=== PATIENT | female | born 1970 | race African-American/Black ===

== ENCOUNTER 2017-09-02 08:42 | Day surgery (SDC) | payer OTHER ==
--- NOTE | 2017-09-02 08:51 | PDOC ---
History of Present Illness - General Chief Complaint: Nausea/Vomiting Stated Complaint: vomiting Time Seen by Provider: 09/02/17 08:49 History Source: Patient, Old Records Exam Limitations: No Limitations - History of Present Illness Initial Comments: 09/02/17 09:40 46-year-old female with h/o anemia, surgical history relevant for gastric banding in 2011 uncomplicated until last month when she required loosening of the band in the setting of vomiting now presents with intractable vomiting for 5 days. Patient is unable to tolerate liquids or solids, vomit undigested food without blood. She was seen by Dr. Olivier, her surgeon, and a upper GI series performed yesterday showed no passage of contrast past the band. She is here today for management of persistent vomiting and dehydration and likely urgent intervention of the band. Passing flatus, no fevers or chills, feels lightheaded with some paresthesias in her hands which she attributes to her dehydration. Past History - Past Medical History Allergies/Adverse Reactions: Allergies Allergy/AdvReac Type Severity Reaction Status Date / Time No Known Allergies Allergy Verified 09/02/17 08:43 Home Medications: Ambulatory Orders NK [No Known Home Medication] 09/02/17 Anemia: No Asthma: No Cancer: No Cardiac Disorders: No CVA: No COPD: No CHF: No Dementia: No Diabetes: No GI Disorders: No Disorders: No HTN: Yes Hypercholesterolemia: No Liver Disease: No Seizures: No Thyroid Disease: No - Surgical History Abdominal Surgery: No Appendectomy: No Cardiac Surgery: No Cholecystectomy: No Lung Surgery: No Neurologic Surgery: No Orthopedic Surgery: No - Suicide/Smoking/Psychosocial Hx Smoking History: Never smoked Have you smoked in the past 12 months: No Hx Alcohol Use: Yes Drug/Substance Use Hx: Yes Substance Use Type: Alcohol Hx Substance Use Treatment: No Review of Systems - Review of Systems Constitutional: No: Chills, Fever Respiratory: No: Cough, Shortness of Breath ABD/GI: Yes: Vomiting, Indigestion. No: Diarrhea : No: Dysuria, Frequency Neurological: No: Headache All Other Systems: Reviewed and Negative *Physical Exam - Physical Exam Comments: 09/02/17 09:43 Afebrile. Vital signs normal. GENERAL: The patient is awake, alert, and fully oriented, in no acute distress. HEAD: Normal with no signs of trauma. EYES: PERRL, EOMI, sclera anicteric, conjunctiva clear with no pallor. ENT: oropharynx clear without exudates. Slightly dry mucous membranes. NECK: Normal range of motion, supple without lymphadenopathy, JVD, or masses. LUNGS: Breath sounds equal, clear to auscultation bilaterally. No wheeze/ crackles. HEART: Regular rate and rhythm, normal S1 and S2 without murmur or rub. ABDOMEN: Healed incisional scar. Soft/nontender/nondistended. BS wnl. No guarding or rebound. No palpable masses. No hepatosplenomegaly. EXTREMITIES: Normal range of motion, no edema. 2+ distal pulses. No cords, erythema, or tenderness. NEUROLOGICAL: Cranial nerves II through XII grossly intact. Normal speech, normal gait. PSYCH: Normal mood, normal affect. SKIN: Warm, Dry, no rashes or lesions noted. Heart Score/ECG Review #1 ECG reviewed & interpreted by me at: 10:21 General ECG Interpretation: Sinus Rhythm, Normal Rate (69), Normal Intervals ( qtc 460), No acute ischemic changes ED Treatment Course - LABORATORY CBC & Chemistry Diagram: 09/02/17 09:37 09/02/17 09:37 Medical Decision Making - Medical Decision Making 09/02/17 09:44 46-year-old female with intractable vomiting and evidence of obstructing LAP- BAND on upper GI series performed yesterday. Slight dehydration with otherwise normal vital signs and benign abdominal exam. Labs, urinalysis IV fluid rehydration Disposition with Dr. Olivier 09/02/17 10:11 labs wnl, Hgb 11.5, no leukocytosis. Chem notable for K 3.1 which was repleted, LFTs wnl, lipase pending. Discussed with Dr. Olivier, will need OR for lap band removal. Accepts for admission to OR, nurse yard supervisor made aware. *DC/Admit/Observation/Transfer Diagnosis at time of Disposition: Encounter for adjustment of gastric lap band Intractable vomiting Qualifiers: Vomiting type: unspecified Nausea presence: without nausea Qualified Code(s): R11.11 - Vomiting without nausea - Discharge Dispostion Condition at time of disposition: Stable Decision to Admit order: Yes - Referrals - Patient Instructions - Post Discharge Activity
[2017-09-02] MEDS ORDERED: SODIUM CHLORIDE 1,000 ML IV ONE (08:52)
[2017-09-02 09:41] VITALS: BMI 35.5
[2017-09-02 09:49] LABS: EOS % 2.2 % (0-4.5); HEMATOCRIT 34.8 % (32.4-45.2); HEMOGLOBIN 11.5 GM/dl (10.7-15.3); LYMPH % 28.5 % (8-40); MCH 27.6 pg (25.7-33.7); MCHC 33.2 g/dl (32.0-36.0); MEAN CELL VOLUME 83.2 fl (80-96); MEAN PLT VOLUME 9.1 fl (7.5-11.1); MONO % 7.3 % (3.8-10.2); PLATELET COUNT 323 K/MM3 (134-434); RBC 4.18 M/mm3 (3.60-5.2); RDW 14.9 % (11.6-15.6); WHITE BLOOD COUNT 4.6 K/mm3 (4.0-10.8)
[2017-09-02 09:55] LABS: ACTIVATED PTT 29.9 SECONDS (25.2-36.5)
[2017-09-02 09:56] LABS: ALBUMIN 3.6 g/dl (3.5-5.0); ALK PHOS 46 U/L (32-92); ANION GAP 9 (8-16); BLOOD UREA NITROGEN 11 mg/dl (7-18); CALCIUM 8.6 mg/dl (8.4-10.2); CHLORIDE 104 mmol/L (98-107); CO2 26 mmol/L (22-28); CREATININE 0.7 mg/dl (0.6-1.3); GLUCOSE,RANDOM 95 mg/dl (74-106); POTASSIUM 3.1 mmol/L (3.5-5.1); SGOT/AST 17 U/L (10-42); SGPT/ALT 15 U/L (10-40); SODIUM 139 mmol/L (136-145); TOT PROT 7.5 g/dl (6.4-8.3)
[2017-09-02 09:59] LABS: INR 1.33 (0.82-1.09); PROTHROMBIN TIME (PATIENT) 14.8 SEC (10.2-13.0)
[2017-09-02 10:02] LABS: BILIRUBIN,TOTAL < 0.5 mg/dl (0.2-1.0)
[2017-09-02] MEDS ORDERED: POTASSIUM CHLORIDE 20 MEQ PREMIX IVPB 100 ML IVPB ONE (10:21)
[2017-09-02] MEDS ORDERED: KCL 10 MEQ IVPB 20 MEQ/200 ML INFUS.BAG IVPB ONE (10:42)
[2017-09-02 11:56] LABS: LIPASE 161 U/L (73-393)
[2017-09-02] MEDS ORDERED: GENTAMICIN SO4 80 MG/2 ML VIAL ONE (13:58)
[2017-09-02] MEDS ORDERED: BUPIVACAINE HCL/PF 2.5 MG/ML - 30 ML VIAL IJ ONE (13:58)
[2017-09-02] MEDS ORDERED: POLYMYXIN B SULFATE 500,000 UNIT VIAL ONE (13:58)
[2017-09-02] MEDS ORDERED: DESFLURANE GAS 240 ML BOTTLE IH ONE (14:07)
--- NOTE | 2017-09-02 15:14 | EKG ---
Test Reason : Blood Pressure : / mmHG Vent. Rate : 069 BPM Atrial Rate : 069 BPM P-R Int : 190 ms QRS Dur : 090 ms QT Int : 430 ms P-R-T Axes : 055 064 041 degrees QTc Int : 460 ms NORMAL SINUS RHYTHM NORMAL ECG NO PREVIOUS ECGS AVAILABLE Confirmed by Larry Saleh ([id number]) on 09/02/2017 3:13:42 PM Referred By: JESUS GARCIA Confirmed By:Larry Saleh
[2017-09-02] MEDS ORDERED: ONDANSETRON 4 MG/2 ML VIAL IVPUSH PRN ×2 (15:37→15:59)
[2017-09-02] MEDS ORDERED: oxyCODONE HCL 5 MG TABLET PO PRN (15:37)
[2017-09-02] MEDS ORDERED: ENOXAPARIN NA (PORCINE) 40 MG/0.4 ML DISP.SYRIN SQ ONE ×3 (15:45→16:35)
[2017-09-02] MEDS ORDERED: SODIUM CHLORIDE 1,000 ML IV SCH (15:45)
--- NOTE | 2017-09-02 15:52 | OP ---
Operative Note - Note: Operative Date: 09/02/17 Pre-Operative Diagnosis: Vomiting. GE Reflux. Malfunctioning Mechanical Device secondary to Gastric Band Operation: Laparoscopic Removal of Gastric Band Plus Subcutaneous Port Component. Laparoscopic Lysis of Adhesions. Diagnostic Laparoscopy Findings: Gastric Band with slippage down stomach wall Moderate amount of adhesions between omentum, liver and stomach Post-Operative Diagnosis: Same as Pre-op (Abdominal Adhesions) Surgeon: Champ Olivier Testing Manager: Home Miles Anesthesia: General Specimens Removed: Gastric Band Plus Subcutaneous Port Component Estimated Blood Loss (mls): 20 Operative Report Dictated: Yes
[2017-09-02] MEDS ORDERED: PROMETHAZINE HCL 25 MG/1 ML VIAL IVPUSH PRN (15:59)
[2017-09-02] MEDS ORDERED: ONDANSETRON 4 MG/2 ML VIAL IVPUSH ONE (16:00)
[2017-09-02 16:24] LABS: ANION GAP 8 (8-16); BLOOD UREA NITROGEN 10 mg/dl (7-18); CHLORIDE 108 mmol/L (98-107); CO2 24 mmol/L (22-28); CREATININE 0.7 mg/dl (0.6-1.3); GLUCOSE,RANDOM 99 mg/dl (74-106); POTASSIUM 3.1 mmol/L (3.5-5.1); SODIUM 140 mmol/L (136-145)
[2017-09-02] MEDS ORDERED: POTASSIUM CHLORIDE 10 MEQ PREMIX IVPB (POTASSIUM RIDER) IVPB ONE (16:44)
--- NOTE | 2017-09-02 16:59 | OP ---
DATE OF OPERATION: 09/02/2017 PREOPERATIVE DIAGNOSIS: 1. Vomiting. 2. General endotracheal reflux disease. 3. Mechanical complication implantable device to gastric band. POSTOPERATIVE DIAGNOSIS: 1. Vomiting. 2. General endotracheal reflux disease. 3. Mechanical complication of implantable device to gastric band. 4. Abdominal adhesions. PROCEDURE PERFORMED: 1. Laparoscopic removal of gastric band plus subcutaneous port component. 2. Laparoscopic lysis of adhesions. 3. Diagnostic laparoscopy. OPERATING SURGEON: Khai Wilcox M.D. PIE BAKER SURGEON: Home Miles M.D. ANESTHESIA: General. OPERATIVE PROCEDURE: The patient was brought into the operating room, placed on the OR table in a supine position. All precautions were taken initially including padding for the back and the feet, and Venodyne boots were placed on both lower extremities. At that point, the abdomen was prepped and draped in usual manner. A Veress needle was placed in the left upper quadrant, and a pneumoperitoneum was established. A number 12 bladeless trocar was placed in the left upper quadrant; through that trocar, laparoscopic camera was placed. Under direct vision, a number 5 and 15 bladeless trocars were placed in the right upper quadrant, and a number 12 bladeless trocar below the left costal margin. A Radha liver retractor was then placed in the epigastrium to retract the left lobe of the liver. Patient was then put in a 20-degree reverse Trendelenburg position by anesthesia. At this point, the band tubing was noted in the left upper quadrant, and it was followed all the way to the band, which was around the stomach, but noted to be dislodged and farther down the stomach like a slippage. There was scar tissue between the omentum and the edge of the liver, and as the account management assistant surgeon retracted it laterally, the operating surgeon with the electrocautery was able to dissect it off the liver. This now exposed the entire band in full view. As the operating surgeon retracted the band towards the patient's right side, the account management assistant surgeon retracted the stomach inferiorly. The hook electrocautery was then used to dissect the scar tissue off the band until the band on the greater curvature was out completely in full view. At this point, the account management assistant surgeon retracted the band tubing towards the patient's left side, and the operating surgeon retracted the stomach on the lesser curvature inferiorly. Scar tissue on the band of the lesser curvature was now dissected with the electrocautery until the band was freely mobile. The band was then opened and the tubing was cut at a takeoff to the subcutaneous port, and pulled through the band. The band was then removed from around the stomach and sent off the field as specimen to pathology. There was found to be no capsule around the band that needed dissecting, so at this point under direct vision, all trocars were removed and pneumoperitoneum released. Then the number 15 right upper quadrant trocar site was extended laterally and dissection continued with electrocautery down to the port on the right anterior rectus muscle. The fibrous capsule around the port was dissected, and the port was then removed from the right anterior rectus muscle, sent off the field as specimen to pathology. At this juncture, all trocar sites received 0.25% Marcaine. The number 15 port site was closed with 3-0 Vicryl in the subcutaneous tissue, and then all trocars were closed with 4-0 Biosyn in subcuticular fashion. Dressings were applied, patient awoken from anesthesia and transferred out of the operating room to the recovery room in stable condition. Anesthesia for the case was general, surgeon Dr. Wilcox, account management assistant Dr. Miles, expected blood loss was 20 mL, patient transferred to recovery room in stable condition. KHAI WILCOX M.D. [id number]
[2017-09-02] MEDS ORDERED: KCL 10 MEQ IVPB 10 MEQ/100 ML INFUS.BAG IVPB SCH (17:00)
[2017-09-02] MEDS ORDERED: POTASSIUM CHLORIDE TABS 20 MEQ TABLET.ER (FP) PO ONE ×2 (17:00→19:00)
[2017-09-02] MEDS ORDERED: KCL 10 MEQ IVPB 10 MEQ/100 ML INFUS.BAG IVPB ONE (17:14)
[2017-09-02 18:04] VITALS: TEMP 97.9
[2017-09-02] MEDS ORDERED: oxyCODONE HCL 5 MG TABLET ONE (18:14)
[2017-09-02 18:32] LABS: ANION GAP 5 (8-16); BLOOD UREA NITROGEN 9 mg/dl (7-18); CALCIUM 8.3 mg/dl (8.4-10.2); CHLORIDE 107 mmol/L (98-107); CO2 26 mmol/L (22-28); CREATININE 0.7 mg/dl (0.6-1.3); GLUCOSE,RANDOM 142 mg/dl (74-106); POTASSIUM 3.2 mmol/L (3.5-5.1); SODIUM 138 mmol/L (136-145)
[2017-09-02 19:53] VITALS: BP 125/79; PULSE 80
[2017-09-02] MEDS ORDERED: FAMOTIDINE 20 MG/50 ML IVPB 20 MG/50 ML MG IVPB SCH (22:00)
== END 2017-09-02 19:45 | disposition home or self-care (01) ==
LOC: FER 08:42 → FASU 10:53
PROVIDERS: ATTEND Surgery
PROC: 0DP64CZ Removal of Extraluminal Device from Stomach, Percutaneous Endoscopic Approach (ICD-10-PCS; principal; 2017-09-02 14:45)
DX: T85.518A Breakdown (mechanical) of other gastrointestinal prosthetic devices, implants and grafts, initial encounter (principal); Y93.89 Activity, other specified; Y92.89 Other specified places as the place of occurrence of the external cause; K95.09 Other complications of gastric band procedure; K66.0 Peritoneal adhesions (postprocedural) (postinfection)
CPT/HCPCS: 36415; 80048; 80053; 83690; 84703; 85025; 85610; 85730; 86850; 86900; 86901; 93005; 99282-25; J7030

== ENCOUNTER 2017-09-03 22:35 | Emergency (ER) | payer OTHER ==
--- NOTE | 2017-09-03 22:46 | PDOC ---
History of Present Illness - General Chief Complaint: Pain Stated Complaint: S/P LAP REMOVAL-PAIN Time Seen by Provider: 09/03/17 22:45 History Source: Patient Exam Limitations: No Limitations - History of Present Illness Initial Comments: 09/03/17 23:02 This is a morbidly obese 46-year-old female who comes in complaining of abdominal pain. Patient developed intractable vomiting yesterday and had her lap band removed by her. Patient said she was doing okay until this evening when she developed abdominal pain. Patient tried to take a Percocet for the pain which made the pain severe and so she came in for evaluation. Patient denies any vomiting or diarrhea. Patient denies any fevers or chills. PAST MEDICAL HISTORY: Obesity, gastritis PAST SURGICAL HISTORY: Lap band FAMILY HISTORY: no pertinant history SOCIAL HISTORY: Pt lives with family and is employed. MEDICATIONS: reviewed ALLERGIES: As per nursing notes Review of Systems General: No fevers or chills, no weakness, no weight loss HEENT: No change in vision. No sore throat,. No ear pain CardioVascular: No chest pain or shortness of breath Respiratory:No cough, or wheezing. Gastrointestinal: no nausea, vomitting, diarrhea or constipation, No rectal bleeding, abdominal pain as per history of present illness Genitourinary: No dysuria, hematuria, or frequency Musculoskeletal: No joint or muscle pain or swelling Neurologic: No headache, vertigo, dizziness or loss of consciousness Psychiatric: nor depression Skin: No rashes or easy bruising Endocrine: no increased thirst or abnormal weight change Allergic: no skin or latex allergy All other systems reviewed and normal Exam: General: Well-nourished well-developed individual, no acute distress HEENT: Throat: Normal, tonsils normal, no erythema or exudate Neck: Supple, no meningeal signs, no lymphadenopathy Eyes::Pupils equal reactive and round, extraocular motion intact Chest: Nontender to palpation Cardiac: S1-S2 normal, regular rate and rhythm, no murmurs rubs or gallops Respiratory: Lungs clear to auscultation bilateral Abdomen: Soft, mildly distended with tenderness in the epigastric area no guarding or rebound. Bowel sounds are somewhat decreased Extremities: Warm, dry, no cyanosis, clubbing, or edema Skin: No rashes Neuro: Alert and oriented x3, CN II - XII intact, nonfocal exam with normal strength, normal sensation, normal reflexes, normal gait, Psych: Normal mood and affect CAT scan shows a small collection within the anterior abdominal wall where the patient is tender. This most likely is secondary to hematoma. Abscess is a consideration however the LAP-BAND was only removed yesterday and it would be unlikely to be an abscess as it is only 24 hours since LAP-BAND was removed. Discussed with Dr. Olivier who also feels that this is most likely a hematoma. Patient has Percocet at home that she can take for the pain which she advises her to take. Otherwise patient will be advised to rest as much as possible no heavy lifting and call Dr. Olivier in the morning. Patient discharged. Past History - Past Medical History Allergies/Adverse Reactions: Allergies Allergy/AdvReac Type Severity Reaction Status Date / Time No Known Allergies Allergy Verified 09/02/17 08:43 Home Medications: Ambulatory Orders Famotidine [Pepcid] 20 mg PO BID #60 tablet 09/02/17 Oxycodone HCl/Acetaminophen [Percocet 5-325 mg Tablet] 1 tab PO Q6H PRN #20 tablet MDD 4 09/02/17 Anemia: No Asthma: No Cancer: No Cardiac Disorders: No CVA: No COPD: No CHF: No Dementia: No Diabetes: No GI Disorders: No Disorders: No HTN: Yes Hypercholesterolemia: No Liver Disease: No Seizures: No Thyroid Disease: No - Surgical History Abdominal Surgery: No Appendectomy: No Cardiac Surgery: No Cholecystectomy: No GI Surgery: No (lapband) Lung Surgery: No Neurologic Surgery: No Orthopedic Surgery: No - Suicide/Smoking/Psychosocial Hx Smoking History: Never smoked Have you smoked in the past 12 months: No Hx Alcohol Use: Yes Drug/Substance Use Hx: Yes Substance Use Type: Alcohol Hx Substance Use Treatment: No ED Treatment Course - LABORATORY CBC & Chemistry Diagram: 09/03/17 23:00 09/03/17 23:00 *DC/Admit/Observation/Transfer Diagnosis at time of Disposition: Abdominal wall hematoma Qualifiers: Encounter type: initial encounter Qualified Code(s): S30.1XXA - Contusion of abdominal wall, initial encounter - Discharge Dispostion Disposition: HOME Condition at time of disposition: Good Decision to Admit order: No - Referrals Referrals: Champ Olivier MD [Primary Care Provider] - - Patient Instructions Additional Instructions: Take your Percocet as needed for pain if you need to crush it and put it in something U can do that to help make it easier to swallow. Call Dr. Olivier in the morning during regular office hours and let him know how you're doing if you are not feeling better he said he will see you in his office. Return to the emergency department immediately with ANY new, persistent or worsening symptoms. Continue any medications as previously prescribed by your physician. . Please make sure your doctor reviews the results of your emergency evaluation. Thank you for coming to the Emergency Department today for your care. It was a pleasure to see you today. Please note that your evaluation is INCOMPLETE until you follow-up with your doctor. - Post Discharge Activity
[2017-09-03 22:49] VITALS: BP 151/88; PULSE 90; TEMP 98
[2017-09-03] MEDS ORDERED: morphine CARPU-JECT 4 MG/1 ML DISP.SYRIN IVPUSH ONE (23:00)
[2017-09-03 23:19] LABS: BASO % 1.4 % (0-2.0); EOS % 1.6 % (0-4.5); HEMATOCRIT 32.9 % (32.4-45.2); HEMOGLOBIN 10.7 GM/dl (10.7-15.3); LYMPH % 44.1 % (8-40); MCH 27.1 pg (25.7-33.7); MCHC 32.5 g/dl (32.0-36.0); MEAN CELL VOLUME 83.4 fl (80-96); MEAN PLT VOLUME 9.4 fl (7.5-11.1); MONO % 5.2 % (3.8-10.2); NEUT % 47.7 % (42.8-82.8); PLATELET COUNT 291 K/MM3 (134-434); RBC 3.94 M/mm3 (3.60-5.2); RDW 14.8 % (11.6-15.6); WHITE BLOOD COUNT 5.6 K/mm3 (4.0-10.8)
[2017-09-03] MEDS ORDERED: morphine SULFATE 4 MG/ML VIAL ONE (23:27)
[2017-09-03 23:28] LABS: ALBUMIN 3.4 g/dl (3.5-5.0); ALK PHOS 47 U/L (32-92); ANION GAP 4 (8-16); BLOOD UREA NITROGEN 6 mg/dl (7-18); CALCIUM 8.4 mg/dl (8.4-10.2); CHLORIDE 106 mmol/L (98-107); CO2 27 mmol/L (22-28); CREATININE 0.8 mg/dl (0.6-1.3); GLUCOSE,RANDOM 121 mg/dl (74-106); POTASSIUM 3.4 mmol/L (3.5-5.1); SGOT/AST 19 U/L (10-42); SGPT/ALT 16 U/L (10-40); SODIUM 137 mmol/L (136-145)
[2017-09-03 23:29] LABS: BILIRUBIN,TOTAL < 0.3 mg/dl (0.2-1.0)
== END 2017-09-04 01:18 | disposition home or self-care (01) ==
LOC: FER 22:35
PROC: 3E033NZ Introduction of Analgesics, Hypnotics, Sedatives into Peripheral Vein, Percutaneous Approach (ICD-10-PCS; principal; 2017-09-03)
DX: S30.1XXA Contusion of abdominal wall, initial encounter (principal); I10 Essential (primary) hypertension; T81.89XA Other complications of procedures, not elsewhere classified, initial encounter; Z98.84 Bariatric surgery status; Z98.0 Intestinal bypass and anastomosis status
CPT/HCPCS: 36415; 74177-TC; 80053; 83690; 85025; 99282-25

== ENCOUNTER 2022-12-31 22:29 | Emergency (ER) | payer OTHER ==
[2022-12-31 22:45] VITALS: BP 155/96; PULSE 74; RESP 16; TEMP 98; BMI 36.8
== END 2022-12-31 23:31 | disposition home or self-care (01) ==
LOC: FER 22:29
DX: H92.02 Otalgia, left ear (principal); R11.0 Nausea; S00.03XA Contusion of scalp, initial encounter; X58.XXXA Exposure to other specified factors, initial encounter
CPT/HCPCS: 70450-TC; 99284-25